=== PATIENT | male | born 1950 | race Caucasian/White ===

== ENCOUNTER 2021-05-17 14:14 | Emergency (ER) | payer OTHER, SELFPAY ==
[~2021-05-17] VITALS: Ht 157.5 cm; Wt 65.8 kg
[~2021-05-17 14:14] MED LIST: ACET-1182 PO; ASPI-1856 PO; ATOR20TA40 PO; DEXT5SYR3 PO; LISI20TA29 PO; MERO1PIG IV; METO25TA PO; PANT40EC56 PO; POTA10TA70 PO
[2021-05-17 14:34] VITALS: BP 128/69
--- NOTE | 2021-05-17 14:43 | NUR ---
PT WHEELCHAIR ASSISTED TO BED 12
--- NOTE | 2021-05-17 15:03 | NUR ---
XRAY AT BEDSIDE
--- NOTE | 2021-05-17 15:44 | NUR ---
PATIENT PRESENTS TO ED WITH LEFT LEG PAIN. STATES PT LIVES IN A NURSING FACILITY DUE TO PAST STROKE, X2 DAYS AGO HE BECAME UNABLE TO AMBULATE DUE TO LEFT LEG PAIN. FAMILY DENIES N/V/D; SKIN IS PINK/WARM/DRY; AAOX4; NON VERBAL; FAMILY DENIES ANY FEVER, CP, SOB, OR COUGH AT THIS TIME; FAMILY APPROXIMATES PAIN OF 8/10 AT THIS TIME; VSS; PATIENT POSITIONED FOR COMFORT; HOB ELEVATED; BEDRAILS UP X2; BED DOWN. ER MD MADE AWARE OF PT STATUS.
--- NOTE | 2021-05-17 16:57 | NUR ---
PT RETURNED FROM RADIOLOGY
--- NOTE | 2021-05-17 17:35 | NUR ---
ER PA AT BEDSIDE
[2021-05-17 17:45] VITALS: BP 146/79
--- NOTE | 2021-05-17 17:45 | NUR ---
Patient discharged with v/s stable. Written and verbal after care instructions given and explained to spouse. Spouse verbalized understanding. Wheel Chair Assisted with to home. All questions addressed prior to discharge. Advised to follow up with PMD.
== END 2021-05-17 17:45 | disposition home or self-care (01) ==
LOC: MED 14:14
DX: M79.605 Pain in left leg (principal); E11.9 Type 2 diabetes mellitus without complications; I10 Essential (primary) hypertension; F17.200 Nicotine dependence, unspecified, uncomplicated; Z79.82 Long term (current) use of aspirin; Z79.899 Other long term (current) drug therapy
CPT/HCPCS: 72192; 73502; 73552; 73562; 73590; 73630; 99284; Q0092